=== PATIENT | male | born 1955 | race Caucasian/White ===

== ENCOUNTER 2017-10-14 15:15 | Emergency (ER) | payer BC, OTHER ==
[2017-10-14 16:23] VITALS: BP 157/85
--- NOTE | 2017-10-14 16:35 | UC ---
Shoulder Pain HPI - HPI Summary HPI Summary: Patient states while at work today he was pulling a water pump from a well and felt a sudden pain and heard an audible pop from his right shoulder. This occurred around 1 PM. He notes pain with movement of the shoulder particularly along the front of the shoulder. He denies any neck pain he denies any numbness or tingling to the arm he denies any other injuries and offers no other complaints. - History of Current Complaint Chief Complaint: UCUpperExtremity Stated Complaint: WC-RIGHT SHOULDER INJ Time Seen by Provider: 10/14/17 16:28 Hx Obtained From: Patient Onset/Duration: Sudden Onset Timing: Constant Pain Intensity: 0 Aggravating Factor(s): Movement Alleviating Factor(s): Rest Associated Signs And Symptoms: Negative: Swelling, Weakness, Numbness/Tingling - Allergies/Home Medications Allergies/Adverse Reactions: Allergies Allergy/AdvReac Type Severity Reaction Status Date / Time Sulfa (Sulfonamide Allergy Unknown Verified 10/14/17 16:18 Antibiotics) Reaction Details Home Medications: Home Medications Lisinopril TAB* [Prinivil TAB 10 MG*] 10 mg DAILY 10/14/17 [History Confirmed ] Simvastatin [Zocor 5 MG-] 40 mg DAILY 10/14/17 [History Confirmed 10/14/17] PMH/Surg Hx/FS Hx/Imm Hx Endocrine History: Dyslipidemia Cardiovascular History: Hypertension - Surgical History Surgical History: None - Family History Known Family History: Positive: Diabetes - Social History Occupation: Employed Full-time Lives: With Family Alcohol Use: Occasionally Substance Use Type: None Smoking Status (MU): Never Smoked Tobacco - Immunization History Vaccination Up to Date: Yes Review of Systems Constitutional: Negative Skin: Negative Eyes: Negative ENT: Negative Respiratory: Negative Cardiovascular: Negative Gastrointestinal: Negative Genitourinary: Negative Motor: Negative Neurovascular: Negative Musculoskeletal: Other: - Right shoulder pain Neurological: Negative Psychological: Negative Is Patient Immunocompromised?: No All Other Systems Reviewed And Are Negative: Yes Physical Exam Triage Information Reviewed: Yes Appearance: Well-Appearing Vital Signs: Initial Vital Signs Temp 98.9 F 10/14/17 16:19 Pulse 79 10/14/17 16:19 Resp 16 10/14/17 16:19 BP 157/85 10/14/17 16:19 Pulse Ox 98 10/14/17 16:19 Vital Signs Reviewed: Yes Eyes: Positive: Conjunctiva Clear ENT: Positive: Normal ENT inspection Neck: Positive: Supple, Nontender, No Lymphadenopathy, Other: - c-spine non tender Respiratory: Positive: Lungs clear, Normal breath sounds Cardiovascular: Positive: RRR, No Murmur Abdomen Description: Positive: Nontender, No Organomegaly, Soft Bowel Sounds: Positive: Present Musculoskeletal: Positive: Other: - Bare from waist up for exam: Right upper extremities without gross deformity, swelling or discoloration when compared to the left. Right anterior shoulder is tender to palpation but no crepitation or instability. Range of motion the shoulder is limited on all directions due to pain. Abduction is particularly restricted and is positive drop arm test. The rest of the right upper extremity is nontender and has full sensorivascular motor function. Neurological: Positive: Alert Psychological: Positive: Age Appropriate Behavior Skin Exam: Normal Diagnostics - Radiology No standard instances Radiology Interpretation Completed By: Radiologist - DEGENERATIVE CHANGES OF THE RIGHT AC JOINT IN THIS OTHERWISE NONACUTE RIGHT SHOULDER RADIOGRAPH. Shoulder Course/Dx - Course Course Of Treatment: no fx of dislocation. possible rotator cuff injury. will sling, otc nsaid and ortho f/u. HX HTN, TX PLUS BP MAY BE PAIN RELATED WELL. - Differential Dx/Diagnosis Provider Diagnoses: Acute L shoulder pain. Possible rotator cuff injury Discharge - Sign-Out/Discharge Documenting (check all that apply): Discharge/Admit/Transfer - Discharge Plan Condition: Stable Disposition: HOME Patient Education Materials: Shoulder Sprain (ED) Referrals: Maria Victoria Morales MD [Primary Care Provider] - Additional Instructions: FOLLOW UP [facility] SCHEDULED FOR THIS COMING TUESDAY. SLING DURING DAY AND REMOVE AT BEDTIME. PASSIVE PENDULAR SWINGS 3 X'S DAILY. - Billing Disposition and Condition Condition: STABLE Disposition: Home
[2017-10-14] MEDS ORDERED: Ibuprofen TAB* 600 MG PO ONE (16:41)
--- NOTE | 2017-10-14 17:56 | RAD ---
INDICATION: Pain while lifting COMPARISON: None. TECHNIQUE: 4 views of the right shoulder were obtained. FINDINGS: The adequately corticated bones are in normal alignment. Joint spaces appear maintained. Along the superior margin of the acromioclavicular joint is a well-circumscribed subcentimeter bony focus consistent with a chronic osteophyte. No fracture, dislocation or focal bony abnormality is seen. IMPRESSION: DEGENERATIVE CHANGES OF THE RIGHT AC JOINT IN THIS OTHERWISE NONACUTE RIGHT SHOULDER RADIOGRAPH. If the patient's symptoms persist, follow-up imaging is recommended.
== END 2017-10-14 17:49 | disposition home or self-care (01) ==
LOC: UCCORT 15:15
DX: M25.511 Pain in right shoulder (principal); X50.0XXA Overexertion from strenuous movement or load, initial encounter; Y93.89 Activity, other specified; Y92.9 Unspecified place or not applicable; Z88.2 Allergy status to sulfonamides; I10 Essential (primary) hypertension; E78.5 Hyperlipidemia, unspecified
CPT/HCPCS: 99213; A9270-GY; G0463